=== PATIENT | male | born 1985 | race African-American/Black ===

== ENCOUNTER 2019-03-16 06:54 | Emergency (ER) | payer SELFPAY ==
[2019-03-16 07:20] VITALS: BMI 33.3
--- NOTE | 2019-03-16 07:27 | PDOC ---
History of Present Illness - General Chief Complaint: Blood Pressure Problem Stated Complaint: ELEVATED BLOOD PRESSURE Time Seen by Provider: 03/16/19 07:27 History Source: Patient Exam Limitations: No Limitations - History of Present Illness Initial Comments: 33 year old male with PMH non-medication managed HTN presented to ED for "elevated blood pressure". Pt reported yesterday he began to feel like his pressure was high, because he developed a slight headache, he reported he took his blood pressure and it was 180 systolic. He reported because of the high number and because he is afraid of stroke, he decided he needed to come to the ED. He denied numbness, weakness, tinging, facial drooping, gait changes, speech changes, chest pain, shortness of breath, vomiting, fever, hematuria, back pain, abdominal pain. ROS General: denied fever, chills, generalized weakness. HEENT: denied sore throat, rhinorrhea, ear pain. Cardiovascular: denied chest pain, palpitations, syncope, diaphoresis. Respiratory: denied shortness of breath, cough, sputum production, hemoptysis. Gastrointestinal: denied abdominal pain, nausea, vomiting, diarrhea, constipation, blood in stool. Genitourinary: denied dysuria, increased urinary frequency, hematuria, urinary incontinence, flank pain. Back: denied back pain. Musculoskeletal: denied joint pain, muscle pain, joint swelling. Neurological: admitted to headache. denied dizziness, numbness, tingling, weakness. Integumentary: denied rash, laceration, abrasion. Hematologic/Lymphatic: denied bruising or bleeding. PE Constitutional: Well-nourished, Well-developed, appearing stated age. HEENT: head is normocephalic, atraumatic. EOMI. PERRLA. no posterior pharyngeal erythema.no tonsillar swelling or exudates bilaterally. uvula midline. no peritonsillar swelling, tenderness or abscess. no jaw tenderness or misalignment. Neck: supple. Full ROM. Cardiovascular: regular heart rhythm. no murmurs. no pericardial friction rub. Respiratory: clear to auscultation bilaterally. no crackles, rhonchi or wheezing. no stridor. Gastrointestinal: soft, nontender. normal bowel sounds. no rebound, guarding, masses. Extremities: peripheral pulses intact. no lower extremity edema. Neurological: alert. oriented x3. CN2-12 intact. 5/5 strength all extremities. normal ankle plantar flexion. full sensation all extremities and bilateral face. Psych: awake, alert, oriented x3. follows commands. answers questions appropriately. Past History - Past Medical History Allergies/Adverse Reactions: Allergies Allergy/AdvReac Type Severity Reaction Status Date / Time No Known Allergies Allergy Verified 03/16/19 07:15 Home Medications: Ambulatory Orders Hydrochlorothiazide [Hctz -] 12.5 mg PO DAILY #14 cap 03/16/19 - Immunization History Immunization Up to Date: Yes - Psycho Social/Smoking Cessation Hx Smoking History: Never smoked Information on smoking cessation initiated: No Hx Alcohol Use: No Drug/Substance Use Hx: No *Physical Exam - Vital Signs Last Vital Signs Temp Pulse Resp BP Pulse Ox 97.5 F L 61 18 209/97 H 95 03/16/19 07:15 03/16/19 07:15 03/16/19 07:15 03/16/19 07:15 03/16/19 07:15 ED Treatment Course - LABORATORY CBC & Chemistry Diagram: 03/16/19 07:34 03/16/19 07:34 Medical Decision Making - Medical Decision Making 33 year old male with above PMH presented to ED for headache and elevated BP. Initial Vital Signs Temp Pulse Resp BP Pulse Ox 97.5 F L 61 18 209/97 H 95 03/16/19 07:15 03/16/19 07:15 03/16/19 07:15 03/16/19 07:15 03/16/19 07:15 Afebrile. No tachycardia. No tachypnea. Hypertensive. No hypoxia on room air. Vitals were repeated without any medical intervention. Vital Signs Temperature 97.5 F L 03/16/19 07:15 Pulse Rate 63 03/16/19 07:42 Respiratory Rate 16 03/16/19 07:42 Blood Pressure 179/98 H 03/16/19 07:42 O2 Sat by Pulse Oximetry (%) 96 03/16/19 07:42 Hypertension improved. Labs ordered: CBC, CMP, trop, BNP, UA Imaging ordered: CXR Medications ordered: tylenol 1g IV once, reglan 10 mg IV once, benadryl 12.5 mg IV, normal saline bolus 1000 cc once EKG performed at 0749: rate 60, regular rhythm, normal axis, normal intervals, flipped T in aVL, otherwise no acute ST changes. -No prior to compare 03/16/19 09:24 CT head report: Name: [facility] Phys: Kathie Ocampo RESIDENT : 1985 Age: 33 Sex: M [facility] Acct: [id number] Loc: [facility] [address] [facility] Exam Date: 03/16/19 Status: ARTUR Gong [facility] Unit Number: [id number] EXAM#: TYPE/EXAM: RESULT: [id number] CT/HEAD CT WITHOUT CONTRAST Left side headache with neck pain CT scan of the brain without intravenous contrast. The ventricles and basal cisterns appear unremarkable. No mass lesion, gross acute infarct or intracranial hemorrhage are identified. Visualized paranasal sinuses and mastoid air cells are well-aerated. The calvarium is intact. Impression: No evidence of a focal intracranial lesion or hemorrhage seen. Correlate clinically to determine further evaluation and follow-up. Reported By: Flo Guzman MD 03/16/19 0921 CBC WBC 6.6 K/mm3 (4.0-10.0) 03/16/19 07:34 RBC 5.87 M/mm3 (4.00-5.60) H 03/16/19 07:34 Hgb 17.9 GM/dL (11.7-16.9) H 03/16/19 07:34 Hct 50.7 % (35.4-49) H 03/16/19 07:34 MCV 86.4 fl (80-96) 03/16/19 07:34 MCH 30.5 pg (25.7-33.7) 03/16/19 07:34 MCHC 35.2 g/dl (32.0-35.9) 03/16/19 07:34 RDW 14.0 % (11.9-15.9) 03/16/19 07:34 Plt Count 212 K/MM3 (134-434) 03/16/19 07:34 MPV 7.3 fl (7.5-11.1) L 03/16/19 07:34 Absolute Neuts (auto) 3.4 K/mm3 (1.5-8.0) 03/16/19 07:34 Neutrophils % 52.2 % (42.8-82.8) 03/16/19 07:34 Lymphocytes % 36.6 % (8-40) 03/16/19 07:34 Monocytes % 8.7 % (3.8-10.2) 03/16/19 07:34 Eosinophils % 1.5 % (0-4.5) 03/16/19 07:34 Basophils % 1.0 % (0-2.0) 03/16/19 07:34 Nucleated RBC % 0 % (0-0) 03/16/19 07:34 CMP Sodium 139 mmol/L (136-145) 03/16/19 07:34 Potassium 4.4 mmol/L (3.5-5.1) 03/16/19 07:34 Chloride 106 mmol/L (98-107) 03/16/19 07:34 Carbon Dioxide 30 mmol/L (21-32) 03/16/19 07:34 Anion Gap 4 MMOL/L (8-16) L 03/16/19 07:34 BUN 15.5 mg/dL (7-18) 03/16/19 07:34 Creatinine 1.5 mg/dL (0.55-1.3) H 03/16/19 07:34 Est GFR (CKD-EPI)AfAm 68.91 03/16/19 07:34 Est GFR (CKD-EPI)NonAf 59.46 03/16/19 07:34 Random Glucose 94 mg/dL (74-106) 03/16/19 07:34 Calcium 9.5 mg/dL (8.5-10.1) 03/16/19 07:34 Magnesium 2.0 mg/dL (1.8-2.4) 03/16/19 07:34 Total Bilirubin 1.0 mg/dL (0.2-1) 03/16/19 07:34 AST 27 U/L (15-37) 03/16/19 07:34 ALT 58 U/L (13-61) 03/16/19 07:34 Alkaline Phosphatase 72 U/L (45-117) 03/16/19 07:34 Troponin I < 0.02 ng/ml (0.00-0.05) 03/16/19 07:34 B-Natriuretic Peptide 6.2 pg/ml (5-125) 03/16/19 07:34 Total Protein 7.3 g/dl (6.4-8.2) 03/16/19 07:34 Albumin 4.3 g/dl (3.4-5.0) 03/16/19 07:34 No leukocytosis. No anemia. Mild MARIA ESTHER - IVF running. No transaminitis. Troponin wnl. No BNP elevation. CXR report: Name: [facility] Phys: Kathie Ocampo RESIDENT : 1985 Age: 33 Sex: M [facility] Acct: [id number] Loc: [facility] Exam Date: 03/16/19 Status: [place] [id number] Unit Number: [id number] EXAM#: TYPE/EXAM: RESULT: [id number] RAD/CHEST PA LAT Chest: Hypertension There are no prior studies for comparison. 2 views of the chest reveal clear well aerated lungs, normal mediastinum and sharp angles. The bones and soft tissues are intact. Impression: No acute chest pathology. Reported By: Miller Bethea MD 03/16/19 0819 03/16/19 09:30 Urine Test Results Urine Color Yellow 03/16/19 07:34 Urine Appearance Clear 03/16/19 07:34 Urine pH 5.0 (5.0-8.0) 03/16/19 07:34 Ur Specific [place] 1.006 (1.010-1.035) L 03/16/19 07:34 Urine Protein Negative (NEGATIVE) 03/16/19 07:34 Urine Glucose (UA) Negative (NEGATIVE) 03/16/19 07:34 Urine Ketones Negative (NEGATIVE) 03/16/19 07:34 Urine Blood Negative (NEGATIVE) 03/16/19 07:34 Urine Nitrite Negative (NEGATIVE) 03/16/19 07:34 Urine Bilirubin Negative (NEGATIVE) 03/16/19 07:34 Ur Leukocyte Esterase Negative (NEGATIVE) 03/16/19 07:34 Negative for UTI. Negative for proteinuria. Negative for hematuria. IVF and Tylenol still running, pt had his arm bent and was cutting off the IV. 03/16/19 10:07 Symptoms improving. Pt discharged with HCTZ 12.5 mg PO daily x14 days. Pt given referral for [facility]. Discharge - Discharge Information Problems reviewed: Yes Clinical Impression/Diagnosis: HTN (hypertension), Headache Condition: Stable Disposition: HOME - Admission No - Additional Discharge Information Prescriptions: Hydrochlorothiazide [Hctz -] 12.5 mg PO DAILY #14 cap - Follow up/Referral - Patient Discharge Instructions Patient Printed Discharge Instructions: DI for High Blood Pressure, How to Monitor Your Blood Pressure at Home Additional Instructions: Follow up with a primary care doctor within 3 days. Your care is not complete until you follow up. I have provided you with a referral to our clinic system, which can get patients in to be seen relatively quickly. They accept all insurance or no insurance. Call today and make the soonest appointment available. I have started you on an anti-hypertensive medication to help control you blood pressure before you can get in to see a primary care doctor. Take as advised on label. Drink lots of water throughout the day to stay hydrated. Get at least 8 hours of sleep a night. Take Tylenol over the counter for headache, take as advised on label. Return to the Emergency Department for increasing pain, chest pain, shortness of breath, vomiting, fever, visual changes, gait changes, weakness, numbness, tingling or any other new, worsening or concerning symptoms. - Post Discharge Activity Work/Back to School Note: Back to Work
--- NOTE | 2019-03-16 07:44 | PDOC ---
Attending Attestation - Resident Resident Name: Con Ocampoa - ED Attending Attestation I have performed the following: I have examined & evaluated the patient, The case was reviewed & discussed with the resident, I agree w/resident's findings & plan, Exceptions are as noted - HPI HPI: 03/16/19 09:51 33 years old with no significant past medical history presents to the ED with elevated blood pressure mild headache patient states he has known his blood pressures been elevated in the past was feeling slightly unwell yesterday with mild headache mild neck pain slight nausea and presented to the emergency department for further evaluation initial blood pressure was greater than 200 systolic current blood pressure is now in the 170s patient feeling better - Physicial Exam PE: 03/16/19 09:51 Vitals: Triage Vital signs reviewed General Appearance: No acute distress, well nourished well developed, Head: Atraumatic, Eyes: Pupils equal reactive round, extraocular movement intact Neck: Supple; no Nucal rigidity Chest Wall: Nontender Cardiac: Regular rate and rhythym, no murmurs, no rubs, no gallops, Lungs: Clear to auscultation bilateral, good air movement bilaterally, Abdomen: Soft, non distended, normal bowel sounds, non tender to palpation Extremities: Full range of motion to all extremities, no cyanosis, clubbing, or edema Skin: Warm and dry, no rashes or lesions, no rash, no petechiae Psych: Normal mood, normal affect - Medical Decision Making 03/16/19 12:52 Hypertension with mild headache no bleed on head CT patient feels better after Tylenol blood pressure now better controlled We will discharge home with prescription for hydrochlorothiazide and follow-up appointment in our [facility] Findings, need for follow-up and strict return instructions discussed with patient. Heart Score/ECG Review - ECG Impressions Comment:: 03/16/19 09:[address] elevations or T wave inversions
[2019-03-16 07:55] LABS: EOS % 1.5 % (0-4.5); HEMATOCRIT 50.7 % (35.4-49); HEMOGLOBIN 17.9 GM/dL (11.7-16.9); LYMPH % 36.6 % (8-40); MCH 30.5 pg (25.7-33.7); MCHC 35.2 g/dl (32.0-35.9); MEAN CELL VOLUME 86.4 fl (80-96); MEAN PLT VOLUME 7.3 fl (7.5-11.1); MONO % 8.7 % (3.8-10.2); NEUT % 52.2 % (42.8-82.8); PLATELET COUNT 212 K/MM3 (134-434); RBC 5.87 M/mm3 (4.00-5.60); WHITE BLOOD COUNT 6.6 K/mm3 (4.0-10.0)
[2019-03-16] MEDS ORDERED: METOCLOPRAMIDE HCL INJECTION 10 MG/2 ML VIAL IVPUSH ONE (08:01)
[2019-03-16] MEDS ORDERED: ACETAMINOPHEN 1000 MG/100 ML VIAL (NON FORMULARY) IVPB ONE (08:01)
[2019-03-16] MEDS ORDERED: SODIUM CHLORIDE 1,000 ML IV STA (08:05)
[2019-03-16] MEDS ORDERED: METOCLOPRAMIDE HCL INJECTION 10 MG/2 ML VIAL ONE (08:07)
[2019-03-16 08:17] LABS: INR 0.99 (0.83-1.09); PROTHROMBIN TIME (PATIENT) 11.7 SEC (9.7-13.0)
[2019-03-16 08:20] LABS: ACTIVATED PTT 32.6 SECONDS (25.2-36.5)
[2019-03-16 08:30] LABS: ALBUMIN 4.3 g/dl (3.4-5.0); ALK PHOS 72 U/L (45-117); ANION GAP 4 MMOL/L (8-16); BLOOD UREA NITROGEN 15.5 mg/dL (7-18); CALCIUM 9.5 mg/dL (8.5-10.1); CHLORIDE 106 mmol/L (98-107); CO2 30 mmol/L (21-32); CREATININE 1.5 mg/dL (0.55-1.3); GLUCOSE,RANDOM 94 mg/dL (74-106); N-TERMINAL BNP 6.2 pg/ml (5-125); POTASSIUM 4.4 mmol/L (3.5-5.1); SGOT/AST 27 U/L (15-37); SGPT/ALT 58 U/L (13-61); SODIUM 139 mmol/L (136-145); TOT PROT 7.3 g/dl (6.4-8.2)
[2019-03-16] MEDS ORDERED: ACETAMINOPHEN INJECTION 100 ML IVPB ONE (08:53)
[2019-03-16 09:28] LABS: URINE APPEARANCE CLEAR; URINE BILIRUBIN NEGATIVE (NEGATIVE); URINE COLOR YELLOW; URINE GLUCOSE (UA) NEGATIVE (NEGATIVE); URINE KETONE NEGATIVE (NEGATIVE); URINE LEUK ESTERASE NEGATIVE (NEGATIVE); URINE NITRITE NEGATIVE (NEGATIVE); URINE PROTEIN NEGATIVE (NEGATIVE); URINE UROBILINOGEN 0.2 mg/dL (0.2-1.0)
[2019-03-16 10:45] VITALS: BP 146/98; PULSE 78; TEMP 98
--- NOTE | 2019-03-18 20:29 | EKG ---
Test Reason : Blood Pressure : / mmHG Vent. Rate : 060 BPM Atrial Rate : 060 BPM P-R Int : 146 ms QRS Dur : 088 ms QT Int : 432 ms P-R-T Axes : 034 019 010 degrees QTc Int : 432 ms NORMAL SINUS RHYTHM NORMAL ECG NO PREVIOUS ECGS AVAILABLE Confirmed by TON HUFFMAN MD ([id number]) on 03/18/2019 8:28:59 PM Referred By: Confirmed By:TON HUFFMAN MD
== END 2019-03-16 10:47 | disposition home or self-care (01) ==
LOC: JER 06:54
PROC: 3E033NZ Introduction of Analgesics, Hypnotics, Sedatives into Peripheral Vein, Percutaneous Approach (ICD-10-PCS; principal; 2019-03-16)
PROC: 3E033GC Introduction of Other Therapeutic Substance into Peripheral Vein, Percutaneous Approach (ICD-10-PCS; 2019-03-16)
PROC: 3E0337Z Introduction of Electrolytic and Water Balance Substance into Peripheral Vein, Percutaneous Approach (ICD-10-PCS; 2019-03-16)
DX: I10 Essential (primary) hypertension (principal); R51 Headache
CPT/HCPCS: 36415; 70450-TC; 71046-TC-FY; 80053; 81003; 83735; 83880; 84484; 85025; 85610; 85730; 93005; 93010; 99285-25; J0131; J7030